=== PATIENT | female | born 1955 | race Caucasian/White ===

== ENCOUNTER 2019-12-26 16:15 | Emergency (ER) | payer BC, MEDICARE ==
[~2019-12-26] VITALS: Ht 157.5 cm; Wt 74.5 kg
--- NOTE | 2019-12-26 16:59 | NUR ---
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
--- NOTE | 2019-12-26 17:25 | NUR ---
THIS IS A 64 YO F W/ C/O NAUSEA, NECK/BACK PAIN AND RT ARM PAIN SINCE 1400. PT DENIES VOMITING. BEDSIDE EKG DONE, CONCERNING FOR ST ELEVATION, GIVEN TO PROVIDER, REPEAT DONE 5 MINUTES AFTER AND GIVEN TO . PT CONNECTED TO ALL MONITORING, RESP EVEN AND UNLABORED, VSS, NADN. PT RESTING ON GURNEY W/ CALL LIGHT IN REACH AND FAMILY AT BEDSIDE. AWAITING ORDERS.
[2019-12-26 18:08] LABS: BASOPHILS # (AUTO) 0.04 x10^3/uL (0-0.1); BASOPHILS % (AUTO) 0 % (0-1); EOSINOPHILS # (AUTO) 0.05 x10^3/uL (0-0.4); EOSINOPHILS % (AUTO) 1 % (1-7); LYMPHOCYTES # (AUTO) 2.12 x10^3/uL (1-3.4); LYMPHOCYTES % (AUTO) 24 % (22-44); MD NO; MEAN CORPUSCULAR HEMOGLOBIN 31.1 pg (27.0-34.8); MEAN CORPUSCULAR HGB CONC 33.8 g/dL (32.4-35.8); MEAN CORPUSCULAR VOLUME 91.9 fL (80-100); MEAN PLATELET VOLUME 8.8 fL (7.4-10.4); MONOCYTES # (AUTO) 0.47 x10^3/uL (0.2-0.8); MONOCYTES % (AUTO) 5 % (2-9); NEUTROPHILS % (AUTO) 69 % (42-75); PLATELET COUNT 250 x10^3/uL (130-400); RED BLOOD COUNT 4.38 x10^6/uL (3.82-5.3); RED CELL DISTRIBUTION WIDTH 14.7 % (9.6-15.2)
[2019-12-26 18:10] LABS: ALBUMIN 3.6 g/dL (3.4-5.0); ANION GAP 9 mmol/L (5-15); CALCIUM 8.9 mg/dL (8.5-10.1); CHLORIDE 102 mmol/L (98-107); CREATININE 1.08 mg/dL (0.55-1.02)
[2019-12-26 18:14] LABS: ALKALINE PHOSPHATASE 138 U/L (45-117); BILIRUBIN,TOTAL 0.4 mg/dL (0.2-1.0); TROPONIN I < 0.015 ng/mL (0.000-0.045)
[2019-12-26 18:19] LABS: ALANINE AMINOTRANSFERASE 64 U/L (12-78)
[2019-12-26 18:29] VITALS: BP 125/68
--- NOTE | 2019-12-26 19:06 | NUR ---
REPORT GIVEN TO KIMBERLY BERTRAND.
== END 2019-12-26 19:59 | disposition left against medical advice (07) ==
LOC: ED 19:20
DX: M25.512 Pain in left shoulder (principal); M25.511 Pain in right shoulder; M54.2 Cervicalgia; R11.0 Nausea; R53.83 Other fatigue; R94.31 Abnormal electrocardiogram [ECG] [EKG]; R07.89 Other chest pain
CPT/HCPCS: 36415; 71045; 80053; 84484; 85025; 93005; 99285